=== PATIENT | female | born 1965 | race Caucasian/White ===

== ENCOUNTER 2018-04-26 02:55 | Inpatient (IN) ==
[2018-04-26] MEDS ORDERED: methylPREDNISolone 125 MG/2 ML VIAL IV STA (03:07)
[2018-04-26] MEDS ORDERED: ALBUT/IPRATROP 3MG/0.5MG NEB 3 ML VIAL NEB ONE (03:07)
[2018-04-26] MEDS ORDERED: ACETAMINOPHEN 500 MG TAB PO STA (03:08)
[2018-04-26] MEDS ORDERED: SODIUM CHLORIDE 0.9% 1000ML 1,000 ML IV ONE ×2 (03:08→04:11)
[2018-04-26 03:28] LABS: Basophils # (auto) 0.02 K/uL (0-0.2); Basophils % (auto) 0.2 %; Hematocrit (blood only) 42.5 % (37-47); Hemoglobin 14.2 g/dL (12.0-16.0); Immature Granulocytes # (auto) 0.02 K/uL (0.00-0.02); Immature Granulocytes % (auto) 0.2 %; Lymphocytes # (auto) 0.94 K/uL (1.2-3.4); Lymphocytes % (auto) 11.4 %; Mean Corpuscular Hgb Conc 33.4 g/dL (32-36); Mean Corpuscular Volume 89.1 fL (80-100); Mean Platelet Volume 9.9 fL (7.4-10.4); Monocytes # (auto) 0.73 K/uL (0.11-0.59); Monocytes % (auto) 8.8 %; Neutrophils # (auto) 6.54 K/uL (1.4-6.5); Neutrophils % (auto) 79.4 %; Platelet Count 259 K/uL (130-400); RDW Coefficient of Variation 14.4 % (11.5-14.5); RDW Standard Deviation 47.1 fL (36.4-46.3); Red Blood Count 4.77 M/uL (4.2-5.4); White Blood Count 8.25 K/uL (4.8-10.8)
[2018-04-26 03:48] LABS: Blood Urea Nitrogen 9 mg/dl (7-18); Carbon Dioxide 25 mmol/L (21-32); Chloride 103 mmol/L (98-107); Est GFR (African American) 115.2; Est GFR (Non-African American) 99.4; Potassium 3.9 mmol/L (3.5-5.1); Sodium 133 mmol/L (136-145)
[2018-04-26 03:49] LABS: BUN Creatinine Ratio 13.6 (10-20); Calcium 8.4 mg/dl (8.5-10.1); Creatinine Clr Calc Pharmacy 107.6 ml/min; Glucose 126 mg/dl (70-99)
[2018-04-26 03:53] LABS: Troponin I < 0.015 ng/ml (0-0.045)
[2018-04-26 03:54] LABS: Base Excess VBG 0.5 mEq/L; HCO3 VBG 27 mmol/L; Oxygen Saturation VBG 61.2 %; PCO2 VBG 48 mmHg (38-50); PO2 VBG 31 mmHg; pH VBG 7.36 (7.36-7.41)
[2018-04-26 04:05] LABS: Influenza B virus by PCR Neg for Influ B (Neg)
[2018-04-26] MEDS ORDERED: LEVOFLOXACIN/D5W 750 MG/150 ML BAG IV STA (04:11)
[2018-04-26] MEDS ORDERED: OSELTAMIVIR PHOSPHATE 75 MG CAP PO STA (04:11)
--- NOTE | 2018-04-26 05:21 | Emergency Department Note ---
Entered by Regan Weber acting as a scribe for Ole Kerr MD ED Provider Note Name: Sydnee Nielsen Age: 52 Arrives Via: Personal Vehicle Informant: Patient CC: Shortness of breath HPI: The patient is a 52 year old female who presents to the Emergency Room with complaints of worsening shortness of breath and cough that started a few days ago but got worse today. The patient reports it feels as though she can not catch her breath. She has no history of asthma or lung issues but is a daily smoker, smoking 1/2 pack a day. She took Ibuprofen today prior to arrival but did not take Tylenol. She denies any vomiting, rhinorrhea, recent falls, leg swelling, recent travel, or being around anyone sick. She does not take any daily medications nor does she have any surgical history or family history. ROS: See above HPI for pertinent positives & negatives. A total of 10 systems reviewed and were otherwise negative. Past Medical History: No past medical history Past Surgical History: None Family History: No pertinent family history Social History: Smoker Home Medications: None Allergies No known allergies Physical: Vitals: BP: 167/93, MA: 134, RR: 30, Temp: 100F, O2 Sat 83 on 3L/min NC Exam: GENERAL: Patient is ill appearing and in moderate distress. EYES: No scleral icterus, unremarkable pupils. ENT: Mucous membranes moist, no nasal congestion. NECK: No masses appreciated, no meningismus, trachea is midline. RESPIRATORY: No rhonchi. Diffuse loud inspiratory and expiratory wheezing, tachypneic and dyspneic with blue lips CARDIOVASCULAR: Tachycardic rate and regular rhythm. No murmurs, rubs, gallops appreciated. GASTROINTESTINAL: Abdomen soft, non-tender, no peritonitis. Bowel sounds positive. No masses appreciated. BACK: No midline tenderness, no CVA tenderness EXTREMITIES: Normal motion all extremities, no cyanosis, no edema. NEUROLOGIC: Alert and oriented, no acute motor or sensory deficits, no focal weakness, cranial nerves grossly intact. SKIN: No rash, no jaundice, no diaphoresis. ED Course: Prior Medical Record, Triage/Nursing Notes, Medications, Allergies reviewed by Me Vital Signs: reviewed and remarkable for Tachy, Febrile, Hypoxia, Tachypnea Labs: Reviewed and remarkable for Flu A + Interventions: Saline Lock, NSS Bolus 2 L IV, Levaquin 750mg IV, Tamiflu 75mg PO , Tylenol 1 g PO Imaging: X ray results are stated below per my interpretation: Chest: 1 view: No effusion, normal cardiac border, no PTX, no overt low bar infiltrates. Mild perihilar fullness. Findings consistent with chronic emphysema /COPD. No previous for comparison. EKG: Sinus tachycardia rate of 125, no ectopy, no ischemia, QTc 427. No previous for comparison. Consults: Dr Darwin Mendoza [facility] Hospitalist for admission Reassessments/Times: 0305: Past medical records reviewed. The patient was evaluated in room A10, and a complete history and physical examination were performed. 0410: I spoke to Dr. Darwin Mendoza [facility] Hospitalist about the patient's case and he is going to accept her for further evaluation. 0415: I reevaluated the patient and she still has considerable wheezing, tachypnea, and tachycardia. I informed her of findings and updated her on the plan of care. Blood pressure: Normal. No Referral necessary Disposition: Admit to hospitalist. Prescriptions: none. Differentials: Differential: Infectious, Reactive Airway Disease, Pneumonia, Pneumothorax, COPD, CHF, ACS, Pulmonary Embolism,MSK, GI, Dissection, amongst other etiologies entertained. Medical Decision Makin yr old female shob and febrile who is quite ill appearing on arrival with hypoxia and significant respiratory distress. Started continuous neb, given empiric IV Solu-Medrol and sepsis work-up initiated. CXR without clear infiltrate though with copd will empirically give abx. SHe is not overtly in septic shock though BP is a bit on low side and HR quite elevated in setting of fever. Given 2 L NSS bolus for resus. LA and VBG OK, Blood culture pending. Flu A positive PCR thus Tamiflu. With hypoxia and respiratory status will need admission for further management/evaluation. I do not feel this episode represents PE, dissection given findings. Impression: Influenza A Acute Respiratory Distress COPD exacerbation Hypoxia Ole Kerr MD The scribe's documentation has been prepared under my direction and personally reviewed by me in its entirety. I confirm that the note above accurately reflects all work, treatment, procedures, and medical decision making performed by me. Impression & Plan COPD exacerbation, Hypoxia, Acute respiratory distress, Influenza A Past Med/Surg History Social History Feels Safe at Home: Yes Smoking Status: Current every day smoker Results & Data Vital Signs Vital Signs - 24 hr 04/26/18 02:58 04/26/18 03:05 04/26/18 03:08 Temperature 37.8 C H Temperature Source Oral Sepsis Recent Fever Within 48 Hours Yes Sepsis Action Taken by Nursing No Action Required Pulse Rate 134 H Pulse Rate [Apical] Respiratory Rate 30 H Respiratory Effort / Characteristics Spontaneous Labored Pursed Lip Short of Breath Tripoding Respiratory Depth Deep Respiratory Pattern Regular Tachypnea Blood Pressure 167/93 H Blood Pressure Mean 117 Blood Pressure Position Sitting Pulse Oximetry 88 L 83 L Oxygen Delivery Method Room Air Nasal Cannula Nasal Cannula Oxygen Flow Rate 3 04/26/18 03:30 04/26/18 03:33 04/26/18 03:54 Temperature Temperature Source Sepsis Recent Fever Within 48 Hours Sepsis Action Taken by Nursing Pulse Rate 122 H 116 H Pulse Rate [Apical] 120 H Respiratory Rate 24 28 H 19 Respiratory Effort / Characteristics Spontaneous Labored Short of Breath Respiratory Depth Respiratory Pattern Blood Pressure 149/72 H 134/80 Blood Pressure Mean 97 98 Blood Pressure Position Pulse Oximetry 93 94 100 Oxygen Delivery Method Nasal Cannula Oxygen Flow Rate 3 04/26/18 04:00 04/26/18 04:30 04/26/18 05:00 Temperature Temperature Source Sepsis Recent Fever Within 48 Hours Sepsis Action Taken by Nursing Pulse Rate 112 H 113 H 122 H Pulse Rate [Apical] Respiratory Rate 32 H 16 22 Respiratory Effort / Characteristics Respiratory Depth Respiratory Pattern Blood Pressure 135/73 114/70 108/52 L Blood Pressure Mean 93 84 70 Blood Pressure Position Pulse Oximetry 100 100 90 Oxygen Delivery Method Oxygen Flow Rate Laboratory Data Result diagrams: 04/26/18 03:12 04/26/18 03:12 Lab Results 04/26/18 04/26/18 04/26/18 Range/Units 03:12 03:12 03:12 WBC 8.25 (4.8-10.8) K/uL RBC 4.77 (4.2-5.4) M/uL Hgb 14.2 (12.0-16.0) g/dL Hct 42.5 (37-47) % MCV 89.1 (80-100) fL MCH 29.8 (25-34) pg MCHC 33.4 (32-36) g/dL RDW Std Deviation 47.1 H (36.4-46.3) fL RDW Coeff of [place] 14.4 (11.5-14.5) % Plt Count 259 (130-400) K/uL MPV 9.9 (7.4-10.4) fL Immature Gran % (Auto) 0.2 % Neut % (Auto) 79.4 % Lymph % (Auto) 11.4 % [place] % (Auto) 8.8 % Eos % (Auto) 0.0 % Baso % (Auto) 0.2 % Immature Gran # (Auto) 0.02 (0.00-0.02) K/uL Neut # (Auto) 6.54 H (1.4-6.5) K/uL Lymph # (Auto) 0.94 L (1.2-3.4) K/uL [place] # (Auto) 0.73 H (0.11-0.59) K/uL Eos # (Auto) 0.00 (0-0.5) K/uL Baso # (Auto) 0.02 (0-0.2) K/uL VBG pH (7.36-7.41) VBG pCO2 (38-50) mmHg VBG pO2 mmHg VBG HCO3 mmol/L VBG O2 Saturation % VBG Base Excess mEq/L Sodium 133 L (136-145) mmol/L Potassium 3.9 (3.5-5.1) mmol/L Chloride 103 (98-107) mmol/L Carbon Dioxide 25 (21-32) mmol/L Anion Gap 5.0 (3-11) BUN 9 (7-18) mg/dl Creatinine 0.69 (0.6-1.2) mg/dl Est Cr Clr Drug Dosing 107.6 ml/min Est GFR ( Amer) 115.2 Est GFR (Non-Af Amer) 99.4 BUN/Creatinine Ratio 13.6 (10-20) Glucose 126 H (70-99) mg/dl Lactate 0.9 (0.4-2.0) mmol/L Calcium 8.4 L (8.5-10.1) mg/dl Magnesium 2.0 (1.8-2.4) mg/dl Troponin I < 0.015 (0-0.045) ng/ml Influenza Type A (PCR) (Neg) Influenza Type B (PCR) (Neg) 04/26/18 04/26/18 Range/Units 03:12 03:28 WBC (4.8-10.8) K/uL RBC (4.2-5.4) M/uL Hgb (12.0-16.0) g/dL Hct (37-47) % MCV (80-100) fL MCH (25-34) pg MCHC (32-36) g/dL RDW Std Deviation (36.4-46.3) fL RDW Coeff of [place] (11.5-14.5) % Plt Count (130-400) K/uL MPV (7.4-10.4) fL Immature Gran % (Auto) % Neut % (Auto) % Lymph % (Auto) % [place] % (Auto) % Eos % (Auto) % Baso % (Auto) % Immature Gran # (Auto) (0.00-0.02) K/uL Neut # (Auto) (1.4-6.5) K/uL Lymph # (Auto) (1.2-3.4) K/uL [place] # (Auto) (0.11-0.59) K/uL Eos # (Auto) (0-0.5) K/uL Baso # (Auto) (0-0.2) K/uL VBG pH 7.36 (7.36-7.41) VBG pCO2 48 (38-50) mmHg VBG pO2 31 mmHg VBG HCO3 27 mmol/L VBG O2 Saturation 61.2 % VBG Base Excess 0.5 mEq/L Sodium (136-145) mmol/L Potassium (3.5-5.1) mmol/L Chloride (98-107) mmol/L Carbon Dioxide (21-32) mmol/L Anion Gap (3-11) BUN (7-18) mg/dl Creatinine (0.6-1.2) mg/dl Est Cr Clr Drug Dosing ml/min Est GFR ( Amer) Est GFR (Non-Af Amer) BUN/Creatinine Ratio (10-20) Glucose (70-99) mg/dl Lactate (0.4-2.0) mmol/L Calcium (8.5-10.1) mg/dl Magnesium (1.8-2.4) mg/dl Troponin I (0-0.045) ng/ml Influenza Type A (PCR) Pos for Influ A A* (Neg) Influenza Type B (PCR) Neg for Influ B (Neg) Administered Medications Levofloxacin/Dextrose (Levaquin/D5w) 750 mg in 150 mls @ 100 mls/hr IV NOW STA Stop: 04/26/18 05:40 Last Admin: 04/26/18 04:22 Dose: 100 mls/hr Discontinued Medications Acetaminophen (Tylenol) 1,000 mg PO NOW STA Stop: 04/26/18 03:09 Last Admin: 04/26/18 03:21 Dose: 1,000 mg Albuterol (Duoneb) 12 ml NEB ONE ONE Stop: 04/26/18 03:08 Last Admin: 04/26/18 03:33 Dose: 12 ml Sodium Chloride (Nss 1000ml) 1,000 mls @ 999 mls/hr IV .Q1H1M ONE Stop: 04/26/18 04:08 Last Infusion: 04/26/18 04:25 Dose: 0 mls/hr Admin: 04/26/18 03:23 Dose: 999 mls/hr Sodium Chloride (Nss 1000ml) 1,000 mls @ 999 mls/hr IV .Q1H1M ONE Stop: 04/26/18 05:11 Last Admin: 04/26/18 04:22 Dose: 999 mls/hr Methylprednisolone (Solumedrol) 125 mg IV NOW STA Stop: 04/26/18 03:08 Last Admin: 04/26/18 03:23 Dose: 125 mg Oseltamivir Phosphate (Tamiflu) 75 mg PO NOW STA Stop: 04/26/18 04:12 Last Admin: 04/26/18 04:22 Dose: 75 mg Discharge Plan Visit Data Chief Complaint: Respiratory Problems Stated Complaint: TROUBLE BREATHING ED Provider: Ole Kerr Discharge Problem: COPD exacerbation, Hypoxia, Acute respiratory distress, Influenza A Patient Disposition: Being Evaluated by Hospitalist Forms Stand Alone Forms: My [email or web address] Prescriptions Prescriptions: No Action No Known Home Medications RF: 0 Referrals Referrals: Mark Dodd III, MD [Primary Care Provider] - The scribe's documentation has been prepared under my direction and personally reviewed by me in its entirety. I confirm that the note above accurately reflects all work, treatment, procedures, and medical decision making performed by me.
--- NOTE | 2018-04-26 05:23 | History & Physical Report ---
Date of Service April 26, 2018 Assessment & Plan (1) COPD exacerbation: 52 y/o F who denies a significant medical history, although she does have an extensive smoking history. She developed a cough, wheezing, fever and progressive SOB beginning 3 days ago. Her SOB acutely worsened over the last day and she presented with moderate respiratory distress to the ER. She responded well to steroids, oxygen and nebulizers. On admission she is requiring 3l of oxygen to maintain an adequate saturation. A rapid flu test returned (+) for flu A. Her CXR and exam are consistent with COPD which has not been officially diagnosed. Labs are otherwise unremarkable. The pt is admitted with influenza A which we presently presume to have caused a COPD exacerbation, although this would be her first such episode. A CXR shows hyperinflation and exam is consistent with COPD. She is provided with Tamiflu, Scheduled nebs, steroids and an 02 protocol. She received a dose of Levaquin in the ER. Would reassess in a day prior to an additional dose, although this may be merited based on high likelihood of underlying COPD. The pt will require follow-up with a building custodial supervisor for PFTs going forward. She has been strongly advised on smoking cessation. Full code - Lovenox prophylaxis. Total time for this consult including review of labs, meds, imaging, records, discussion with pt and ER attending - 35 min Present on Admission?: Yes (2) Influenza A: History of Present Illness Chief Complaint: 52 y/o F who denies a significant medical history, although she does have an extensive smoking history. She developed a cough, wheezing, fever and progressive SOB beginning 3 days ago. Her SOB acutely worsened over the last day and she presented with moderate respiratory distress to the ER. She responded well to steroids, oxygen and nebulizers. On admission she is requiring 3l of oxygen to maintain an adequate saturation. A rapid flu test returned (+) for flu A. Her CXR and exam are consistent with COPD which has not been officially diagnosed. Labs are otherwise unremarkable. PMH: Denies medical or surgical history Social: 1/2 pack cigarettes daily - 30 yr pack Hx - does not drink alcohol Family: States that both parents are alive and well - no CAD, CA, DM or COPD in family Primary Care Provider: Mark Dodd III, MD Allergies Allergy/AdvReac Type Severity Reaction Status Date / Time No Known Allergies Allergy Verified 04/26/18 04:14 Home Medications Home Medications Medication Instructions Recorded Confirmed Type No Known Home Medications 04/26/18 04/26/18 History Past Med/Surg History Social History Feels Safe at Home: Yes Smoking Status: Current every day smoker Review of Systems General: Fevers x 2 days - gen illness ENT: Congestion reported Eyes: Denies acute visual impairment, eye pain Cardiovascular: Denies CP, palpitations, PND, orthopnea Respiratory: Progressive SOB, cough and wheezing as per HPI GI: Denies nausea, vomiting, diarrhea, constipation, GI bleeding : Denies dysuria, hesitancy, frequency, hematuria Neuro: Denies headache, lightheadedness, syncope, unilateral weakness, acute loss of balance, memory loss Endocrine: Denies polydypsia, polyuria Heme: Denies unexplained bruising Skin: Denies acute rash or ulcers Physical Exam 2 Vital Signs (Past 24 Hours): Last Vital Signs Temp 37.8 C H 04/26/18 02:58 Pulse 122 H 04/26/18 05:00 Resp 22 04/26/18 05:00 BP 108/52 L 04/26/18 05:00 Pulse Ox 90 04/26/18 05:00 Physical Exam: General: Overweight, middle aged F, AAO x 3, labored breathing - no distress - completing sentences ENT: No erythema or exudates, no thrush Eyes: ESEQUIEL, EOMI Head and neck: Normocephalic, atraumatic, No JVD, neck is supple. Chest/heart: Nontender, S1,2, RRR, no murmurs, no gallops Lungs: Very poor air movement with wheezing in all lung jin. Abdomen: Nontender, nondistended, BS+ Neuro: AAO x 3, speech is clear, no unilateral weakness or loss of sensation, coordination intact Musculoskeletal: No joint inflammation, muscle tenderness, FROM Skin: No acute rashes or ulcers - there is malar erythema Extremities: No clubbing, cyanosis, edema
[2018-04-26] MEDS ORDERED: ONDANSETRON INJ 2 MG/ML 2 ML VIAL IV PRN (06:15)
[2018-04-26] MEDS ORDERED: ALBUTEROL 0.083% NEBU SOLN 3 ML VIAL NEB PRN (06:15)
[2018-04-26] MEDS ORDERED: MAGNESIUM HYDROXIDE SUSP 30 ML UDC PO PRN (06:15)
[2018-04-26] MEDS ORDERED: ACETAMINOPHEN 325 MG TAB PO PRN (06:15)
[2018-04-26] MEDS ORDERED: ALUMINUM/MAGNESIUM SUSP 30 ML UDC PO PRN (06:15)
[2018-04-26] MEDS ORDERED: SODIUM CHLORIDE 0.9% 500 ML IV SCH (06:15)
[2018-04-26] MEDS ORDERED: POLYETHYLENE (MIRALAX) 17 GM PACK PO PRN (06:15)
[2018-04-26] MEDS ORDERED: ZOLPIDEM TARTRATE 5 MG TAB PO PRN (06:15)
--- NOTE | 2018-04-26 06:43 | XRay Report ---
XR chest 1V portable CLINICAL HISTORY: SHOB/Hypoxia dyspnea COMPARISON STUDY: No previous studies for comparison. FINDINGS: The bones soft tissues and hemidiaphragms are normal. The cardiomediastinal silhouette is n ormal. The lungs are clear. The pulmonary vasculature is normal. IMPRESSION: Negative chest. The above report was generated using voice recognition software. It may contain grammatical, syntax or spelling errors. Electronically signed by: Raul Beatty M.D. 04/26/2018 6:42 AM
[2018-04-26] MEDS ORDERED: INFLUENZA ADMINISTRATION CHARGE ONE (07:00)
[2018-04-26] MEDS ORDERED: INFLUENZA VIRUS QUAD VACCINE 0.5 ML SYR IM ONE (07:00)
[2018-04-26] MEDS: ALBUT/IPRATROP 3MG/0.5MG NEB 3 ML VIAL NEB SCH ×4 (07:14→19:33)
[2018-04-26 08:11] LABS: INR 1.1 (0.9-1.1); Prothrombin Time 10.9 Seconds (9.0-12.0)
[2018-04-26] MEDS: OSELTAMIVIR PHOSPHATE 75 MG CAP PO SCH ×2 (08:24→21:02)
[2018-04-26] MEDS ORDERED: methylPREDNISolone 60 MG in SYRINGE 0 ML IV SCH (10:00)
[2018-04-26] MEDS: ENOXAPARIN INJ 40 MG/0.4 ML SYR SQ SCH (10:16)
--- NOTE | 2018-04-26 11:54 | Family Medicine Progress Note ---
Date of Service April 26, 2018 Assessment & Plan (1) Influenza A: - Patient found to be positive for flu A - she has been started on tamiflu 75mg bid - we will wean steroids to 60mg q8 - has not received flu vaccine thus far this year - supply supplemental oxygen and wean as tolerated to maintain O2 >93% (2) COPD exacerbation: - Patient is a current smoker and has a 30 pack year smoking history - CXR is consistent with COPD - has never seen a pulm doctor or PCP with regards to lung problems - receiving scheduled duonebs and IV steroids q8 - Will need PCP appointment as outpatient PFT's - Will discuss tiotropium inhaler prior to D/C - smoking cessation encouraged Full code - Lovenox prophylaxis. Supervising Physician Co-Signing Physician Notes ATTENDING NOTE I saw the patient and the resident physician and confirmed [id number] portions of the history and physical exam. I agree with the impression and plan as documented. 52-year-old female with [id number] history of smoking presenting with 3-day history of cough, wheezing, shortness of breath, and mild tachycardia found to be positive for influenza A. This morning, the patient states that she feels much better. When I asked for her to be more specific she states that the breathing which was extremely difficult last night is much easier this morning. She remains afebrile this morning. She denies any nausea or vomiting. Upon exam., Her lungs are clear without wheezing. Slight prolonged expiratory phase consistent with her history. Influenza A Continue Tamiflu Discontinue Levaquin Taper steroids Supplemental oxygen as needed Subjective Patient notes that her breathing has been much improved since being admitted. She was diagnosed with Flu A and likely has undiagnosed COPD. She has received IV steroids, neb treatments and has needed supplemental oxygen via nasal cannula. She notes that she still has a dry cough, and is mildly short of breath with exertion but says her breathing feels much better. She denies any fevers, chills, night sweats, chest pain, abdominal pain, lower extremity swelling, rashes, new joint pain Review of Systems All systems reviewed & are unremarkable except as noted in HPI & below Physical Exam 2 Vital Signs (Past 24 Hours): Last Vital Signs Temp 37.0 C 04/26/18 07:25 Pulse 91 H 04/26/18 11:03 Resp 18 04/26/18 11:03 BP 105/69 04/26/18 08:38 Pulse Ox 93 04/26/18 11:03 Constitutional: WD/WN, vitals as above Neck: No JVD Respiratory: + cough; no respiratory distress and does not use accessory muscles Auscultation: + diminished lung sounds (bilateral) and + wheezes ( worse on the R); no crackles and no rhonchi Cardiovascular: RRR, no murmur, no edema Vessels: posterior tibial pulses present Extremities: + pedal edema; no calf tenderness Gastrointestinal (Abdomen): normal bowel sounds, soft, nontender, no hepatosplenomegaly Musculoskeletal: no cyanosis or clubbing, extremities motor strength 5/5 Psychiatric: A+Ox3, euthymic affect
[2018-04-26] MEDS: NICOTINE 7 MG/24 HR TDSY TD SCH (13:27)
[2018-04-26] MEDS: methylPREDNISolone 60 MG in SYRINGE 0 ML IV SCH (17:15)
[2018-04-27] MEDS: methylPREDNISolone 60 MG in SYRINGE 0 ML IV SCH ×2 (01:47→08:46)
[2018-04-27] MEDS: ALBUT/IPRATROP 3MG/0.5MG NEB 3 ML VIAL NEB SCH ×2 (07:09→10:46)
[2018-04-27] MEDS: ENOXAPARIN INJ 40 MG/0.4 ML SYR SQ SCH (08:45)
[2018-04-27] MEDS: NICOTINE 7 MG/24 HR TDSY TD SCH (08:45)
[2018-04-27] MEDS: OSELTAMIVIR PHOSPHATE 75 MG CAP PO SCH (08:46)
--- NOTE | 2018-04-27 12:46 | Discharge Summary ---
Date of Service April 27, 2018 Admission HPI Per Admitting Provider Chief Complaint: 52 y/o F who denies a significant medical history, although she does have an extensive smoking history. She developed a cough, wheezing, fever and progressive SOB beginning 3 days ago. Her SOB acutely worsened over the last day and she presented with moderate respiratory distress to the ER. She responded well to steroids, oxygen and nebulizers. On admission she is requiring 3l of oxygen to maintain an adequate saturation. A rapid flu test returned (+) for flu A. Her CXR and exam are consistent with COPD which has not been officially diagnosed. Labs are otherwise unremarkable. PMH: Denies medical or surgical history Social: 1/2 pack cigarettes daily - 30 yr pack Hx - does not drink alcohol Family: States that both parents are alive and well - no CAD, CA, DM or COPD in family Principal Diagnosis Influenza A, Possible COPD Discharge Exam Constitutional: WD/WN, vitals as above Neck: No JVD Respiratory: + cough; no respiratory distress and does not use accessory muscles Auscultation: + diminished lung sounds (bilateral) and + wheezes ( worse on the R); no crackles and no rhonchi Cardiovascular: RRR, no murmur, no edema Vessels: posterior tibial pulses present Extremities: + pedal edema; no calf tenderness Gastrointestinal (Abdomen): normal bowel sounds, soft, nontender, no hepatosplenomegaly Musculoskeletal: no cyanosis or clubbing, extremities motor strength 5/5 Psychiatric: A+Ox3, euthymic affect Discharge Data Allergies Allergy/AdvReac Type Severity Reaction Status Date / Time No Known Allergies Allergy Verified 04/26/18 04:14 Consultations 04/26/18 04:11 ED Decision to Admit Stat 04/27/18 09:33 Consult HEMAG pneumatic tester Routine Hospital Course (1) Influenza A: - Patient found to be positive for flu A - she has been started on tamiflu 75mg bid---> will need 7 more tablets upon discharge to complete 5 day course - Received IV steroids 60mg q8 in hospital----> will discharge with 40mg of prednisone for 3 days - has not received flu vaccine thus far this year - patient needed supplemental oxygen while in hospital but was saturating well prior to discharge - will prescribe albuterol inhaler to use as needed until she sees her PCP (2) COPD exacerbation: - Patient is a current smoker and has a 30 pack year smoking history - CXR is consistent with COPD - has never seen a pulm doctor or PCP with regards to lung problems - will be discharged on 40mg of prednisone for 3 days - Will need patients PCP to set up PFT's for patient as outpatient and encourage smoking cessation Total Time Total Time Spent Total Time Spent (In Minutes): 20 Discharge Plan Discharge Items Patient Disposition: Home - Self-Care Reason For Visit: INFLU A, HYPOXIA, POSSIBLE OCCULT COPD Discharge Diagnosis: Influenza A Discharge Goals: Decrease discomfort, Diagnostic testing, Improve disease control and Improve function Activity: Resume your previous activity Non-emergency contact: Primary Care Provider Call non-emergency contact if: your symptoms worsen Diet: Regular Addtl Provider Instructions: You came to the hospital secondary shortness of breath You were diagnosed with influenza A. Your Chest XRAY was concerning for COPD. We gave you tamiflu, steroids and nebulizer treatments to help with your symptoms. We will be discharging you with tamiflu (7 more tablets: take 1 tonight and then twice daily for 3 days), 3 days of oral steroids and an albuterol inhaler ( you can use this as needed for shortness of breath) The case finishing machine adjuster is going to be setting you up to see your PCP. They will phone you to let you know when your appointment will be. Your PCP will need to set you up to get lung function tests in order to help decide if you have COPD. Please try to quit smoking and seek help from your PCP if you need it Prescriptions: New oseltamivir [Tamiflu] 75 mg Capsule 75 mg PO BID Qty: 7 RF: 0 prednisone 20 mg tablet 40 mg PO DAILY 3 Days Qty: 6 RF: 0 albuterol sulfate 90 mcg/actuation HFA aerosol inhaler 1 inha INH Q6H PRN (Reason: shortness of breath or wheezing) Qty: 6.7 RF: 0 No Action No Known Home Medications RF: 0 Visit Report Forms: [employer] [facility], Return To School Instructions Stand-Alone Forms: [employer], Work/School Release (Inpt) Girish/Other Patient Handouts: COPD, Disease Chronic Lung Prevent Infec, Disease Chronic Lung Resources, Disease Chronic Lung Exercise Plan, Disease Chronic Lung [employer], Disease Chronic Lung Quit Smoking, Disease Chronic Lung Stress, COPD Dx Discharge Orders: Discharge Order (Routine); Ordered 04/27/18 Ordered By: Ole Paiz Admission Data Admit Date/Time: 04/26/18 05:06 Attending Provider: Vincent Mchugh Admit Provider: Francesco Granados Primary Care Provider: Mark Dodd III Other Providers: Francesco Granados Service: Telemetry Other Interventions: Discharge Summary Assessment (RN) Last Done: 04/27/18 13:48 Supervising Physician Co-Signing Physician Notes ATTENDING NOTE I saw the patient and the resident physician and confirmed zazueta portions of the history and physical exam. I agree with the impression and plan as documented. This morning the patient feels quite well. She denies any shortness of breath or cough. She is able to complete activities of daily living in her room and ambulate a short distance outside without significant dyspnea. Upon exam, Her lungs are clear without wheezing. Slight prolonged expiratory phase consistent with her history. Influenza A Continue Tamiflu for a total of 5 days Prednisone 40 mg for 3 additional days Albuterol inhaler upon discharge; she notes that she had used this previously with a bout of bronchitis PCP follow-up within 1 week
== END 2018-04-27 15:11 | disposition home or self-care (01) | DRG 153 ==
LOC: ED 02:55 → SUATTDRO 05:06 → 2E 05:06